=== PATIENT | female | born 1995 | race American Indian/Alaskan Native ===

== ENCOUNTER 2017-10-24 15:40 | Emergency (ER) | payer OTHER ==
[2017-10-24 15:54] VITALS: BP 135/77
[2017-10-24 16:29] LABS: Hematocrit 41.4 % (30.3-42.9); Hemoglobin 13.3 gm/dl (10.1-14.3); Mean Corpuscular HGB Conc 32 % (30-34); Mean Corpuscular Volume 70 fl (79-97); Platelet Count 224 K/mm3 (140-440); Red Blood Count 5.89 M/mm3 (3.65-5.03); Red Cell Distribution Width 14.1 % (13.2-15.2)
[2017-10-24 16:30] LABS: Mean Corpuscular Hemoglobin 23 pg (28-32)
[2017-10-24 16:32] LABS: BUN/Creatinine Ratio 15; Blood Urea Nitrogen 9 mg/dL (7-17); Calcium 9.7 mg/dL (8.4-10.2); Hemolysis Index 7
[2017-10-24] MEDS ORDERED: XYLOCAINE 2% INFILTRATI ONE (17:02)
--- NOTE | 2017-10-24 17:45 | Emergency Department Report ---
Abscess Boil HPI - HPI Chief Complaint: Urogenital-Female Stated Complaint: BOIL Time Seen by Provider: 10/24/17 17:41 Duration: 4 Days Location: Chest (under riht breast) Severity: Mild History: Yes Pain, Yes Previous History, No Fever, No Purulent Drainage, No Numbness, No Foreign Body, No Insect Bite HPI: 21-year-old year femalehistory of abscesses presents to ED with right breast abscess. Patient states she is not as severe for the past 4 days. Patient states she was seen at urgent care clinic 2 days ago and was prescribed some antibiotics and pain meds. Patient states that abscess is then a little bit. She would like it to be drained. She denies fever/ chills/ nausea or vomiting. Home Medications: Home Medications Medication Instructions Recorded Confirmed Last Taken Prenat 115/Iron Fum/Folic/Dss 08/09/13 08/09/13 08/08/13 [ 19 Tablet] Allergies/Adverse Reactions: Allergies Allergy/AdvReac Type Severity Reaction Status Date / Time No Known Allergies Allergy Unverified 08/09/13 20:15 ED Review of Systems ROS: Stated complaint: BOIL Other details as noted in HPI Constitutional: denies: chills, fever Eyes: denies: eye pain, eye discharge, vision change ENT: denies: ear pain, throat pain Respiratory: denies: cough, shortness of breath, wheezing Cardiovascular: denies: chest pain, palpitations Endocrine: no symptoms reported Gastrointestinal: denies: abdominal pain, nausea, diarrhea Genitourinary: denies: urgency, dysuria, discharge Musculoskeletal: denies: back pain, joint swelling, arthralgia Skin: denies: rash, lesions Neurological: denies: headache, weakness, paresthesias Psychiatric: denies: anxiety, depression Hematological/Lymphatic: denies: easy bleeding, easy bruising ED Past Medical Hx - Past Medical History Previous Medical History?: Yes Additional medical history: Boils - Surgical History Past Surgical History?: No - Social History Smoking Status: Current Every Day Smoker Substance Use Type: Non Opiate Pain, Prescribed - Medications Home Medications: Home Medications Medication Instructions Recorded Confirmed Last Taken Type Prenat 115/Iron Fum/Folic/Dss 08/09/13 08/09/13 08/08/13 History [ 19 Tablet] ED Abscess Boil Physical Exam - Exam General: Vital signs noted. No distress. Alert and acting appropriately. Front/Back of Body, Lg (Color): 1 - 4cm flactulant mildly tender abscess, no drainage,. Under right breast Size: 4 cm Exam: Yes Tenderness, Yes Fluctuance, No Surrounding Cellulites/Erythema, No Lymphangitis, No Crepitation, No Heart Murmur, No Normal Neurologic Exam, No Normal Circulation I & D Note - I & D Note I & D Note: Patient positioned appropriately, 6cc lidocaine with/without epinephrine was used as a local anesthetic. #11 blade scalpal used for single incision. Additional local anesthetic injected into surrounding viable tissue prior to blunt dissection of loculated adhesions. Copius drainage of pus. Wound packed with iodoform gauze. Procedure tolerated without complications. Wound dressed with sterile 4x4 guaze and paper tape. Pt tolerated procedure well. ED Course Vital Signs 10/24/17 15:49 Temperature 98.1 F Pulse Rate 86 Respiratory 20 Rate Blood Pressure 135/77 O2 Sat by Pulse 99 Oximetry Critical care attestation.: If time is entered above; I have spent that time in minutes in the direct care of this critically ill patient, excluding procedure time. ED Medical Decision Making - Lab Data Result diagrams: 10/24/17 16:05 10/24/17 16:05 - Medical Decision Making This 21-year-old female who presents with abscess underneath the breast. Abscess was drained, see I&D note Discussed the patient to returning to to 3 days for wound packing removal and wound check Patient already taking Motrin and Bactrim as was prescribed to her 2 days ago. Discussed with her to continue taking the medication as prescribed. Patient tolerated procedure well Wound was dressed and cleaned and sterilely draped. ED Disposition Clinical Impression: Abscess of breast Disposition: - TO HOME OR SELFCARE Is pt being admited?: No Does the pt Need Aspirin: No Condition: Stable Instructions: Abscess (ED), Abscess Incision and Drainage (ED) Additional Instructions: Make sure to follow up with the primary care physician as discussed. Take Bactrim and Motrin medications as you've been prescribed 2 days ago. If you have any worsening symptoms or develop new symptoms please return to ED immediately. Returns to ED to 3 days for wound check. Referrals: PRIMARY CARE, [Primary Care Provider] - 3-5 Days DEANNA MCQUEEN MD [Referring] - 3-5 Days [facility] [Outside] - 3-5 Days [facility] [Outside] - 3-5 Days Forms: Accompanied Note, Work/School Release Form(ED) Time of Disposition: 17:46
[2017-10-24 18:53] LABS: Basophils % (Manual) 0 % (0.0-1.8); Total Cells Counted 100
[2017-10-24 18:54] LABS: Anisocytosis 1+; Hypochromasia 1+; Large Platelets 1+; Platelet Estimate Consistent w Auto; Poikilocytosis 1+
== END 2017-10-24 18:08 | disposition home or self-care (01) ==
LOC: ED 15:40
DX: N61.1 Abscess of the breast and nipple (principal); F17.200 Nicotine dependence, unspecified, uncomplicated
CPT/HCPCS: 36415; 80048; 85007; 85025

== ENCOUNTER 2017-10-27 13:32 | Emergency (ER) | payer OTHER ==
[2017-10-27 14:01] VITALS: BP 124/73
[2017-10-27] MEDS ORDERED: PERCOCET 5/325 PO ONE (15:25)
--- NOTE | 2017-10-27 15:29 | Emergency Department Report ---
- General Chief Complaint: Skin/Abscess/Foreign Body Stated Complaint: IODAFORM REMOVAL Time Seen by Provider: 10/27/17 15:24 Source: patient Mode of arrival: Ambulatory Limitations: No Limitations - History of Present Illness Initial Comments: 21-year-old -[place] female coming in for removal of packing to the right breast. Patient was seen on the and had packing placed. She was told to return for removal of packing today. Patient reports that her pains been tolerating she is still taking her antibiotics. She reports that the areas , and itchy. She denies any fever chills no nausea no vomiting. - Related Data Home Medications Medication Instructions Recorded Confirmed Last Taken Prenat 115/Iron Fum/Folic/Dss 08/09/13 08/09/13 08/08/13 [ 19 Tablet] Allergies Allergy/AdvReac Type Severity Reaction Status Date / Time No Known Allergies Allergy Unverified 08/09/13 20:15 ED Review of Systems ROS: Stated complaint: IODAFORM REMOVAL Other details as noted in HPI Constitutional: denies: chills, fever Eyes: denies: eye pain, eye discharge, vision change ENT: denies: ear pain, throat pain Respiratory: denies: cough, shortness of breath, wheezing Cardiovascular: denies: chest pain, palpitations Endocrine: no symptoms reported Gastrointestinal: denies: abdominal pain, nausea, diarrhea Genitourinary: denies: urgency, dysuria, discharge Musculoskeletal: denies: back pain, joint swelling, arthralgia Skin: denies: rash, lesions Neurological: denies: headache, weakness, paresthesias Psychiatric: denies: anxiety, depression Hematological/Lymphatic: denies: easy bleeding, easy bruising ED Past Medical Hx - Past Medical History Previous Medical History?: No Additional medical history: Boils - Surgical History Past Surgical History?: No - Social History Smoking Status: Never Smoker Substance Use Type: None - Medications Home Medications: Home Medications Medication Instructions Recorded Confirmed Last Taken Type Prenat 115/Iron Fum/Folic/Dss 08/09/13 08/09/13 08/08/13 History [ 19 Tablet] ED Physical Exam - General Limitations: No Limitations General appearance: alert, in no apparent distress - Head Head exam: Present: atraumatic, normocephalic - Eye Eye exam: Present: normal appearance - Skin Skin exam: Present: warm, dry, intact, normal color, other (right breast wound clean not erythematous non-edematous mildly tender. Packing was removed and repacked.). Absent: rash ED Course Vital Signs 10/27/17 13:58 Temperature 98.1 F Pulse Rate 75 Respiratory 16 Rate Blood Pressure 124/73 O2 Sat by Pulse 100 Oximetry ED Medical Decision Making - Medical Decision Making Patient has been evaluated by this provider in fast track. I removed the packing from the wound of the right breast and replaced it with fresh new clean packing. I discussed the patient that I'll give her Percocet for pain and discharge her back for her to return in 2-3 days for repacking. Discussed the patient to continue taking Tylenol Motrin for pain and continue with antibiotics as prescribed. Patient verbalized understanding. Critical care attestation.: If time is entered above; I have spent that time in minutes in the direct care of this critically ill patient, excluding procedure time. ED Disposition Clinical Impression: Wound check, abscess Disposition: DC-01 TO HOME OR SELFCARE Is pt being admited?: No Does the pt Need Aspirin: No Condition: Stable Additional Instructions: Please return back in 3 days for packing to be removed and replaced. Continue with your antibiotics [id number] pain medication. Referrals: PRIMARY CARE, [Primary Care Provider] - 3-5 Days Forms: Work/School Release Form(ED), Accompanied Note
== END 2017-10-27 15:36 | disposition home or self-care (01) ==
LOC: ED 13:32
DX: N64.4 Mastodynia (principal)
CPT/HCPCS: 99282

== ENCOUNTER 2017-10-30 12:21 | Emergency (ER) | payer OTHER ==
[2017-10-30 12:58] VITALS: BP 113/75
--- NOTE | 2017-10-30 13:59 | Emergency Department Report ---
Suture/Staple Removal - HPI Chief Complaint: Laceration/Recheck/Suture Stated Complaint: PACKING REMOVAL Time Seen by Provider: 10/30/17 13:45 When Sutures or [place] Placed: 5-7 Days Ago Wound Location: under right breast ED Review of Systems ROS: Stated complaint: PACKING REMOVAL Other details as noted in HPI Constitutional: denies: chills, fever Respiratory: denies: cough, shortness of breath, wheezing Cardiovascular: denies: chest pain, palpitations Gastrointestinal: denies: abdominal pain, nausea, diarrhea Skin: other (incision under right breast, packed). denies: rash, lesions Neurological: denies: headache, weakness, paresthesias ED Past Medical Hx - Past Medical History Previous Medical History?: Yes Additional medical history: Boils - Surgical History Past Surgical History?: No - Social History Smoking Status: Never Smoker Substance Use Type: None - Medications Home Medications: Home Medications Medication Instructions Recorded Confirmed Last Taken Type Prenat 115/Iron Fum/Folic/Dss 08/09/13 08/09/13 08/08/13 History [ 19 Tablet] Suture Removal Exam - Exam General: Vital signs noted. No distress. Alert and acting appropriately. Wound: Yes Drainage (scant drainage to 4x4 dressing), Yes Pus, No Pathologic Erythema, No Tenderness, No Wound Dehiscence Other Systems: All other systems reviewed and are unremarkable. ED Course Vital Signs 10/30/17 12:53 Temperature 98 F Pulse Rate 83 Respiratory 16 Rate Blood Pressure 113/75 O2 Sat by Pulse 98 Oximetry ED Recheck MDM - Differential Diagnosis Wound Recheck - Medical Decision Making This is a 21 y.o. female presents with 1 cm packed wound under right breast. Patient examined by me. Patient is non-toxic appearing and stable. Removed packing, wound clean, no erythema, no swelling, and scant discharge. Discharged home f/u with PCP. Continue bactrim. Discussed ER care plan with patient. Patient agreed with plan. F/U with PCP. Critical care attestation.: If time is entered above; I have spent that time in minutes in the direct care of this critically ill patient, excluding procedure time. ED Disposition Clinical Impression: Wound check, abscess Disposition: DC-01 TO HOME OR SELFCARE Is pt being admited?: No Does the pt Need Aspirin: No Condition: Stable Instructions: Acute Wound Care (ED), Wound Healing and Your Diet (ED) Additional Instructions: Continue Bactrim DS antibiotics as prescribed for the full course. Avoid over use of left hand and prop arm up on pillows to decrease swelling. Wound should be completely closed in 2-4 days. Follow up with Primary Care Provider in 24-72 hours. Return to ER if red, swollen, foul discharge, or fever. Referrals: [facility] [Outside] - 3-5 Days [facility] [Outside] - 3-5 Days [facility] [Outside] - 3-5 Days Forms: Work/School Release Form(ED) Time of Disposition: 14:20 Print Language: YORUBA
== END 2017-10-30 14:34 | disposition home or self-care (01) ==
LOC: ED 12:21
DX: Z48.01 Encounter for change or removal of surgical wound dressing (principal); Z88.6 Allergy status to analgesic agent

== ENCOUNTER 2021-03-01 19:16 | Emergency (ER) | payer SELFPAY ==
[2021-03-01 19:58] VITALS: BP 137/92
--- NOTE | 2021-03-01 23:30 | Emergency Department Report ---
- General Chief complaint: Skin/Abscess/Foreign Body Stated complaint: 2 ABSCESS UNDER LT BREAST Time Seen by Provider: 03/01/21 23:26 Source: patient Mode of arrival: Ambulatory Limitations: No Limitations - History of Present Illness Initial comments: Patient is a 25-year-old female presents emergency room complaints of an abscess to the left breast that began 3 days ago. Patient states that she gets these frequently. She states that she did see a cable systems installer in the past and had steroid injections. Patient states that she has noticed a small amount of drainage. She denies any fever, nausea, vomiting, diarrhea, chills, nipple discharge. States that she has an allergy to tramadol. - Related Data Home Medications Medication Instructions Recorded Confirmed Last Taken Prenat 115/Iron Fum/Folic/Dss 08/09/13 08/09/13 08/08/13 [ 19 Tablet] Previous Rx's Medication Instructions Recorded Last Taken Type Acetaminophen/Codeine [Tylenol 1 tab PO Q6H PRN #12 tab 03/01/21 Unknown Rx /Codeine # 3 tab] Clindamycin [Clindamycin CAP] 300 mg PO TID 7 Days #21 cap 03/01/21 Unknown Rx Sulfamethoxazole/Trimethoprim 1 each PO BID 7 Days #14 tablet 03/01/21 Unknown Rx [Bactrim DS TAB] Allergies Allergy/AdvReac Type Severity Reaction Status Date / Time tramadol Allergy Hives Verified 10/30/17 12:53 Abscess Boil HPI - HPI Chief Complaint: Skin/Abscess/Foreign Body Stated Complaint: 2 ABSCESS UNDER LT BREAST Time Seen by Provider: 03/01/21 23:26 Home Medications: Home Medications Medication Instructions Recorded Confirmed Last Taken Prenat 115/Iron Fum/Folic/Dss 08/09/13 08/09/13 08/08/13 [ 19 Tablet] Previous Rx's Medication Instructions Recorded Last Taken Type Acetaminophen/Codeine [Tylenol 1 tab PO Q6H PRN #12 tab 03/01/21 Unknown Rx /Codeine # 3 tab] Clindamycin [Clindamycin CAP] 300 mg PO TID 7 Days #21 cap 03/01/21 Unknown Rx Sulfamethoxazole/Trimethoprim 1 each PO BID 7 Days #14 tablet 03/01/21 Unknown Rx [Bactrim DS TAB] Allergies/Adverse Reactions: Allergies Allergy/AdvReac Type Severity Reaction Status Date / Time tramadol Allergy Hives Verified 10/30/17 12:53 ED Review of Systems ROS: Stated complaint: 2 ABSCESS UNDER LT BREAST Other details as noted in HPI Comment: All other systems reviewed and negative ED Past Medical Hx - Past Medical History Additional medical history: Boils - Surgical History Past Surgical History?: No - Social History Smoking Status: Never Smoker Substance Use Type: None - Medications Home Medications: Home Medications Medication Instructions Recorded Confirmed Last Taken Type Prenat 115/Iron Fum/Folic/Dss 08/09/13 08/09/13 08/08/13 History [ 19 Tablet] Acetaminophen/Codeine [Tylenol 1 tab PO Q6H PRN #12 tab 03/01/21 Unknown Rx /Codeine # 3 tab] Clindamycin [Clindamycin CAP] 300 mg PO TID 7 Days #21 cap 03/01/21 Unknown Rx Sulfamethoxazole/Trimethoprim 1 each PO BID 7 Days #14 tablet 03/01/21 Unknown Rx [Bactrim DS TAB] ED Physical Exam - General Limitations: No Limitations General appearance: alert, in no apparent distress - Head Head exam: Present: atraumatic, normocephalic - Eye Eye exam: Present: normal appearance - ENT ENT exam: Present: mucous membranes moist - Neurological Exam Neurological exam: Present: alert, oriented X3 - Psychiatric Psychiatric exam: Present: normal affect, normal mood - Skin Skin exam: Present: warm, dry, other (there are two (2cm) areas of induration to the left breast on the medial surface, there is erythema, no active drainage) ED Course Vital Signs 03/01/21 19:51 Temperature 98.9 F Pulse Rate 97 H Respiratory 18 Rate Blood Pressure 137/92 O2 Sat by Pulse 99 Oximetry ED Medical Decision Making - Medical Decision Making Patient is a 25-year-old female presents emergency room complaints of an abscess to the left breast that began 3 days ago. Patient states that she gets these frequently. She states that she did see a cable systems installer in the past and had steroid injections. Patient states that she has noticed a small amount of drainage. She denies any fever, nausea, vomiting, diarrhea, chills, nipple discharge. States that she has an allergy to tramadol. Vitals are stable. On exam:there are two (2cm) areas of induration to the left breast on the medial surface, there is erythema, no active drainage. Examination appears consistent with cellulitis. Patient given prescription for medications. Discussed the importance of follow-up for reexamination. Patient will be referred to derm atology and general surgery. Advised patient Please take medication as prescribed. Please use warm compresses. Follow-up with a cable systems installer. Follow-up with general surgeon. Turn to emergency room for new or worse symptoms including but not limited to worsening swelling, worsening drainage, fever, vomiting, etc. Critical care attestation.: If time is entered above; I have spent that time in minutes in the direct care of this critically ill patient, excluding procedure time. ED Disposition Clinical Impression: Cellulitis Qualifiers: Site of cellulitis: trunk Site of cellulitis of trunk: chest wall Qualified Code(s): L03.313 - Cellulitis of chest wall Disposition: - TO HOME OR SELFCARE Is pt being admited?: No Does the pt Need Aspirin: No Condition: Stable Instructions: Cellulitis, Adult Additional Instructions: Please take medication as prescribed. Please use warm compresses. Follow-up with a cable systems installer. Follow-up with general surgeon. Turn to emergency room for new or worse symptoms including but not limited to worsening swelling, worsening drainage, fever, vomiting, etc. cable systems installer: [facility] Address: [address] [place] [address] Geraldo Mancilla MD Address: [address] [place] [address] Prescriptions: Sulfamethoxazole/Trimethoprim [Bactrim DS TAB] 1 each PO BID 7 Days #14 tablet Clindamycin [Clindamycin CAP] 300 mg PO TID 7 Days #21 cap Acetaminophen/Codeine [Tylenol /Codeine # 3 tab] 1 tab PO Q6H PRN #12 tab PRN Reason: Pain , Severe (7-10) Referrals: ORESTES DELVALLE DO [Staff Physician] - 2-3 Days Time of Disposition: 23:28 Print Language: KYRGYZ
== END 2021-03-01 23:40 | disposition home or self-care (01) ==
LOC: ED 19:16
DX: L03.313 Cellulitis of chest wall (principal); Z98.890 Other specified postprocedural states; Z88.8 Allergy status to other drugs, medicaments and biological substances; Z79.899 Other long term (current) drug therapy
CPT/HCPCS: 99281

== ENCOUNTER 2022-01-07 03:33 | Emergency (ER) | payer SELFPAY ==
[2022-01-07] MEDS ORDERED: TETANUS,DIPH,PERTUSS(ACELL) VACCINE 0.5 ML SYRINGE IM ONE (05:05)
[2022-01-07] MEDS ORDERED: ACETAMINOPHEN 500 MG TAB PO ONE (05:05)
[2022-01-07] MEDS ORDERED: IBUPROFEN 600 MG TAB PO ONE (05:05)
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
[2022-01-07 09:08] VITALS: BP 131/90
== END 2022-01-07 09:11 | disposition home or self-care (01) ==
LOC: ED 03:33
DX: S40.812A Abrasion of left upper arm, initial encounter (principal); V89.2XXA Person injured in unspecified motor-vehicle accident, traffic, initial encounter; Y93.89 Activity, other specified; Y92.89 Other specified places as the place of occurrence of the external cause; Y99.8 Other external cause status
CPT/HCPCS: 90471; 90715; 99283

== ENCOUNTER 2022-01-13 08:03 | Emergency (ER) | payer SELFPAY ==
[2022-01-13 11:43] VITALS: BP 109/73
--- NOTE | 2022-01-13 13:00 | XRay Report ---
FACIAL BONES 5 VIEWS INDICATION: right distal orbit and zytomatic arch pain due to. COMPARISON: None. IMPRESSION: There are multiple piercings which limits this exam. No facial bone fracture is detecte d on x-ray. Orbital cavities and paranasal sinuses appear unremarkable. Soft tissues are within homa l limits. If further evaluation is needed, CT could be obtained. Signer Name: Cash Vick Jr, MD Signed: 01/13/2022 12:56 PM Workstation Name: [id number]
[2022-01-13] MEDS ORDERED: CLINDAMYCIN 150 MG/ML VIAL 6 ML IM ONE (13:24)
[2022-01-13] MEDS ORDERED: KETOROLAC 60 MG/2 ML INJ IM STA (13:27)
--- NOTE | 2022-01-13 13:28 | Emergency Department Report ---
ED General Adult HPI - General Chief complaint: Eye Problems Stated complaint: SWOLLEN EYE Time Seen by Provider: 01/13/22 12:01 Source: patient Mode of arrival: Ambulatory Limitations: No Limitations - History of Present Illness -: Gradual Location: face Radiation: non-radiation Quality: aching, dull Consistency: constant Improves with: none Worsens with: none Associated Symptoms: denies: confusion, chest pain, loss of appetite, malaise, nausea/vomiting, rash, syncope, weakness - Related Data Home Medications Medication Instructions Recorded Confirmed Last Taken Prenat 115/Iron Fum/Folic/Dss 08/09/13 08/09/13 08/08/13 [ 19 Tablet] Previous Rx's Medication Instructions Recorded Last Taken Type Acetaminophen/Codeine [Tylenol 1 tab PO Q6H PRN #12 tab 03/01/21 Unknown Rx /Codeine # 3 tab] Clindamycin [Clindamycin CAP] 300 mg PO TID 7 Days #21 cap 03/01/21 Unknown Rx Sulfamethoxazole/Trimethoprim 1 each PO BID 7 Days #14 tablet 03/01/21 Unknown Rx [Bactrim DS TAB] Mupirocin [Bactroban 2% OINT] 1 applic TP BID #1 tube 01/07/22 Unknown Rx Allergies Allergy/AdvReac Type Severity Reaction Status Date / Time tramadol Allergy Hives Verified 10/30/17 12:53 ED Review of Systems ROS: Stated complaint: SWOLLEN EYE Other details as noted in HPI Comment: All other systems reviewed and negative ED Past Medical Hx - Past Medical History Previous Medical History?: Yes Additional medical history: Boils - Surgical History Past Surgical History?: Yes - Social History Smoking Status: Never Smoker Substance Use Type: None - Medications Home Medications: Home Medications Medication Instructions Recorded Confirmed Last Taken Type Prenat 115/Iron Fum/Folic/Dss 08/09/13 08/09/13 08/08/13 History [ 19 Tablet] Acetaminophen/Codeine [Tylenol 1 tab PO Q6H PRN #12 tab 03/01/21 Unknown Rx /Codeine # 3 tab] Clindamycin [Clindamycin CAP] 300 mg PO TID 7 Days #21 cap 03/01/21 Unknown Rx Sulfamethoxazole/Trimethoprim 1 each PO BID 7 Days #14 tablet 03/01/21 Unknown Rx [Bactrim DS TAB] Mupirocin [Bactroban 2% OINT] 1 applic TP BID #1 tube 01/07/22 Unknown Rx ED Physical Exam - General Limitations: No Limitations General appearance: alert, in no apparent distress - Head Head exam: Present: atraumatic, normocephalic - Eye Eye exam: Present: normal appearance, periorbital swelling (Some redness and swelling just distal to the right orbit. With abrasion and possible entry site to a very vector there is some some induration located there as well and some redness. The lacrimal apparatus appears to be normal no no discharge to the. The pharynx and ears neck all normal.), periorbital tenderness. Absent: PERRL, EOMI Pupils: Absent: normal accommodation - ENT ENT exam: Present: normal exam, normal orophraynx, mucous membranes moist, TM's normal bilaterally - Neck Neck exam: Present: normal inspection - Respiratory Respiratory exam: Present: normal lung sounds bilaterally. Absent: respiratory distress, wheezes, rales, chest wall tenderness, accessory muscle use, decreased breath sounds - Cardiovascular Cardiovascular Exam: Present: regular rate, normal rhythm. Absent: systolic murmur, diastolic murmur, rubs, gallop - GI/Abdominal GI/Abdominal exam: Present: soft, normal bowel sounds - Extremities Exam Extremities exam: Present: normal inspection - Back Exam Back exam: Present: normal inspection. Absent: CVA tenderness (R), CVA tenderness (L) - Neurological Exam Neurological exam: Present: alert, oriented X3, CN II-XII intact - Psychiatric Psychiatric exam: Present: normal affect, normal mood - Skin Skin exam: Present: warm, dry, intact, normal color. Absent: rash ED Course Vital Signs 01/13/22 01/13/22 08:14 11:41 Temperature 98.8 F 98.4 F Pulse Rate 74 69 Respiratory 18 18 Rate Blood Pressure 133/91 Blood Pressure 109/73 [Left] O2 Sat by Pulse 100 100 Oximetry ED Medical Decision Making - Radiology Data Radiology results: report reviewed [facility] [address] [place] [address] XRay Report Signed Patient: BRIDGET MADERA MR#: [id number] : 1995 Acct:[id number] Age/Sex: 26 / F ADM Date: 01/13/22 Loc: ED Attending Dr: Ordering Physician: MEL RODRÍGUEZ Date of Service: 01/13/22 Procedure(s): XR facial bones 3+V Accession Number(s): [id number] cc: MEL RODRÍGUEZ Fluoro Time In Minutes: FACIAL BONES 5 VIEWS INDICATION: right distal orbit and zytomatic arch pain due to. COMPARISON: None. IMPRESSION: There are multiple piercings which limits this exam. No facial bone fracture is detected on x-ray. Orbital cavities and paranasal sinuses appear unremarkable. Soft tissues are within normal limits. If further evaluation is needed, CT could be obtained. Signer Name: Cash Vick Jr, MD Signed: 01/13/2022 12:56 PM Workstation Name: [id number] Transcribed By: TTR Dictated By: CASH VICK JR, MD Electronically Authenticated By: CASH VICK JR, MD Signed Date/Time: 01/13/22 1256 DD/ 1255 TD/TT: Critical care attestation.: If time is entered above; I have spent that time in minutes in the direct care of this critically ill patient, excluding procedure time. ED Disposition Clinical Impression: Foreign body of face with infection Disposition: HOME / SELF CARE / HOMELESS Is pt being admited?: No Does the pt Need Aspirin: No Condition: Stable Instructions: Skin Foreign Body, Cellulitis, Adult Additional Instructions: He was seen via emergency department for possible retained foreign body to the face for which she secondary to an infection. Based on the findings on x-ray there is a foreign body which appears to be in the area where the infection is just distal to your right orbit. As we previously discussed we need to follow- up with the specialist who can remove the slough there safely with minimal complications. You have been prescribed some antibiotics please take them in their entirety and the first dose provided to you in the emergency department. You can manage the area with a cool compress, pain medication/anti- inflammatories antibiotics and to follow-up with of the listed specialist for removal Referrals: MEGA SHARMA MD [Primary Care Provider] - 3-5 Days CHRISTIANO KHOURY MD [Staff Physician] - 3-5 Days
[2022-01-13] MEDS ORDERED: CLINDAMYCIN 150 MG/ML VIAL 6 ML IM SCH (14:00)
== END 2022-01-13 14:14 | disposition home or self-care (01) ==
LOC: ED 08:03
DX: S00.85XA Superficial foreign body of other part of head, initial encounter (principal); L08.9 Local infection of the skin and subcutaneous tissue, unspecified; X58.XXXA Exposure to other specified factors, initial encounter; Y93.89 Activity, other specified; Y92.89 Other specified places as the place of occurrence of the external cause; Y99.8 Other external cause status; Z88.6 Allergy status to analgesic agent
CPT/HCPCS: 70150; 99282; 99283; J1885